=== PATIENT | female | born 1955 | race Caucasian/White ===

== ENCOUNTER 2016-11-12 07:08 | Day surgery (SDC) | payer BC ==
--- NOTE | ~2016-11-12 | EGD ---
EGD REPORT [facility] [address] [address] NAME: ROSA NAVARRETE [birth year]EMBER : [birth year] STATUS : REG [facility] [place] PAT#: [id number] AGE: 61 ADM/REG DATE : 11/12/16 MR#: [id number] REPORT SERV DATE: 11/12/16 DICTATED BY: MARYANNE MCDERMOTT DATE: 11/12/16 REPORT STATUS : Draft TRANSCRIBED BY: [facility] DATE: 11/12/16 Endoscopy Center Patient Name: Rosa Navarrete September Date of : 1955 Attending MD: MARYANNE MCDERMOTT MD Procedure Date No Time: 11/12/2016 Procedure: Colonoscopy Indications: Surveillance: Personal history of adenomatous polyps on last colonoscopy 5 years ago Referring MD: CORETTA DUQUE MD Medicines: Propofol per Anesthesia Complications: No immediate complications. Estimated blood loss: None. Procedure: Pre-Anesthesia Assessment: - After reviewing the risks and benefits, the patient was deemed in satisfactory condition to undergo the procedure. - Prior to the procedure, a History and Physical was performed, and patient medications and allergies were reviewed. The patient's tolerance of previous anesthesia was also reviewed. The risks and benefits of the procedure and the sedation options and risks were discussed with the patient. All questions were answered, and informed consent was obtained. Prior Anticoagulants: The patient has taken no previous anticoagulant or antiplatelet agents. ASA Grade Assessment: II - A patient with mild systemic disease. After reviewing the risks and benefits, the patient was deemed in satisfactory condition to undergo the procedure. After I obtained informed consent, the scope was passed under direct vision. Throughout the procedure, the patient's blood pressure, pulse, and oxygen saturations were monitored continuously. The CF [id number] was introduced through the anus and advanced to the cecum, identified by appendiceal orifice and ileocecal valve. The colonoscopy was performed without difficulty. The ileocecal valve and appendiceal orifice were photographed. The patient tolerated the procedure well. The quality of the bowel preparation was good. The bowel preparation used was SUPREP. Scope withdrawal time was greater than 9 minutes. Findings: The perianal and digital rectal examinations were normal. Pertinent negatives include normal sphincter tone. Multiple small-mouthed diverticula were found in the sigmoid colon. EGD REPORT [address] [address] NAME: ROSA NAVARRETE SEPTEMBER : [birth year] STATUS : REG [facility] [place] PAT#: [id number] AGE: 61 ADM/REG DATE : 11/12/16 MR#: [id number] REPORT SERV DATE: 11/12/16 DICTATED BY: MARYANNE MCDERMOTT DATE: 11/12/16 REPORT STATUS : Draft TRANSCRIBED BY: [employer] DATE: 11/12/16 There was a medium-sized lipoma, in the sigmoid colon. A sessile polyp was found in the transverse colon. The polyp was 5 mm in size. The polyp was removed with a cold snare. Resection and retrieval were complete. Estimated blood loss: none. A sessile polyp was found in the distal sigmoid colon. The polyp was 5 mm in size. The polyp was removed with a cold snare. Resection and retrieval were complete. Estimated blood loss: none. The exam was otherwise without abnormality. Impression: - Moderate diverticulosis in the sigmoid colon. - Medium-sized lipoma in the sigmoid colon. - One 5 mm polyp in the transverse colon. Resected and retrieved. - One 5 mm polyp in the distal sigmoid colon. Resected and retrieved. - The examination was otherwise normal. - Chronic constipation. Recommendation: - Discharge patient to home (ambulatory). - Return to previous diet. - Continue present medications including Linzess. - Await pathology results. - Repeat colonoscopy in 5 years for surveillance. - Return to GI clinic PRN. - Patient has a contact number available for emergencies. The signs and symptoms of potential delayed complications were discussed with the patient. Return to normal activities tomorrow. Written discharge instructions were provided to the patient. Procedure Code(s): --- Professional --- 42275, Colonoscopy, flexible, proximal to splenic flexure; with removal of tumor(s), polyp(s), or other lesion(s) by snare technique Diagnosis Code(s): --- Professional --- K57.30, Diverticulosis of large intestine without perforation or abscess without bleeding D17.5, Benign lipomatous neoplasm of intra-abdominal organs D12.5, Benign neoplasm of sigmoid colon D12.3, Benign neoplasm of transverse colon Z86.010, Personal history of colonic polyps CPT copyright 2013 [employer]. All rights reserved. EGD REPORT [facility] [address] [place]. [address] NAME: ROSA NAVARRETE SEPTEMBER : [birth year] STATUS : REG [facility] [place] PAT#: [id number] AGE: 61 ADM/REG DATE : 11/12/16 MR#: [id number] REPORT SERV DATE: 11/12/16 DICTATED BY: MARYANNE MCDERMOTT DATE: 11/12/16 REPORT STATUS : Draft TRANSCRIBED BY: [employer] DATE: 11/12/16 The codes documented in this report are preliminary and upon bridge painter helper review may be revised to meet current compliance requirements. MARYANNE MCDERMOTT MD 11/12/2016 9:23 AM This report has been signed electronically. Number of Addenda: 0 Note Initiated On: 11/12/2016 8:44 AM Scope Withdrawal Time 0 hours 9 minutes 52 seconds [address] [facility] [place] [address]
[~2016-11-12 07:08] MED LIST: ADVIL PO; CALTRAT600 PO; CO Q-10100 MG PO; FISH-EPA1000 MG PO; IRON TAB PO; MAG OXIDE250 MG PO; NOLV10 PO; OSTEO BI-FLEX1 EACH PO; PRILOSEC40 MG PO; PROAIR HFA INH; Potassium Gluconate PO; VITAMIN D1000 UNI1 PO; VITC500 PO; [UNRECOGNIZED DRUG - OTHER] PO
== END 2016-11-12 23:59 | disposition home or self-care (01) ==
LOC: DMU 07:08
PROVIDERS: Internal Medicine Gastroenterology
PROC: 0DBN8ZZ Excision of Sigmoid Colon, Via Natural or Artificial Opening Endoscopic (ICD-10-PCS; 2016-11-12)
PROC: 0DBL8ZZ Excision of Transverse Colon, Via Natural or Artificial Opening Endoscopic (ICD-10-PCS; principal; 2016-11-12 08:45)
DX: Z12.11 Encounter for screening for malignant neoplasm of colon (principal); D12.3 Benign neoplasm of transverse colon; D12.5 Benign neoplasm of sigmoid colon; K57.30 Diverticulosis of large intestine without perforation or abscess without bleeding; D17.79 Benign lipomatous neoplasm of other sites; K44.9 Diaphragmatic hernia without obstruction or gangrene; E11.9 Type 2 diabetes mellitus without complications; J45.909 Unspecified asthma, uncomplicated; H26.9 Unspecified cataract; Z86.010 Personal history of colon polyps; Z87.891 Personal history of nicotine dependence; Z88.1 Allergy status to other antibiotic agents; Z90.49 Acquired absence of other specified parts of digestive tract; Z90.721 Acquired absence of ovaries, unilateral; Z79.899 Other long term (current) drug therapy; Z98.890 Other specified postprocedural states
CPT/HCPCS: 82962; 88305